=== PATIENT | male | born 1965 | race Two or more races ===

== ENCOUNTER 2017-11-30 21:27 | Emergency (ER) | payer OTHER ==
[~2017-11-30] VITALS: Ht 167.6 cm; Wt 93.0 kg
[2017-11-30 21:36] VITALS: BP 153/91
== END 2017-12-01 00:43 | disposition left against medical advice (07) ==
LOC: ER 21:27
DX: R51 Headache (principal); Z53.21 Procedure and treatment not carried out due to patient leaving prior to being seen by health care provider
CPT/HCPCS: 70450